=== PATIENT | male | born 1995 | race Caucasian/White ===

== ENCOUNTER 2016-12-22 20:28 | Emergency (ER) | payer OTHER ==
[~2016-12-22] VITALS: Ht 175.3 cm; Wt 70.5 kg
[2016-12-22 20:33] VITALS: BP 133/86; PULSE 65; TEMP 98.3
[2016-12-22] MEDS ORDERED: SINGULAIR 110 MG/TAB PO (20:35)
== END 2016-12-22 21:17 | disposition home or self-care (01) ==
LOC: COL.ER 20:28
DX: S61.011A Laceration without foreign body of right thumb without damage to nail, initial encounter (principal); Z23 Encounter for immunization; W27.4XXA Contact with kitchen utensil, initial encounter; Y92.009 Unspecified place in unspecified non-institutional (private) residence as the place of occurrence of the external cause; J45.909 Unspecified asthma, uncomplicated